=== PATIENT | male | born 1955 | race Two or more races ===

== ENCOUNTER 2022-08-20 12:51 | Outpatient (CLI) | payer OTHER ==
[~2022-08-20 12:51] MED LIST: ASA-EC81 MG PO; COZAAR50 MG PO
== END 2022-08-20 12:55 | disposition home or self-care (01) ==
LOC: NUCLEAR 12:51
PROVIDERS: ATTEND Emergency Medicine
DX: M81.0 Age-related osteoporosis without current pathological fracture (principal); Z13.820 Encounter for screening for osteoporosis

== ENCOUNTER 2023-01-17 12:36 | Outpatient (CLI) | payer OTHER | END 2023-01-17 12:44 | disposition home or self-care (01) | LOC: RAD 12:36 | PROVIDERS: ATTEND Orthopaedic Surgery | DX: M25.552 Pain in left hip (principal) ==

== ENCOUNTER 2023-01-28 08:28 | Outpatient (CLI) | payer OTHER | END 2023-01-28 08:33 | disposition home or self-care (01) | LOC: LAB 08:28 | PROVIDERS: ATTEND Orthopaedic Surgery | DX: D64.89 Other specified anemias (principal); E88.89 Other specified metabolic disorders; D68.8 Other specified coagulation defects; N39.0 Urinary tract infection, site not specified; A49.02 Methicillin resistant Staphylococcus aureus infection, unspecified site; E11.9 Type 2 diabetes mellitus without complications; I49.9 Cardiac arrhythmia, unspecified; I10 Essential (primary) hypertension; Z76.89 Persons encountering health services in other specified circumstances ==

== ENCOUNTER 2023-02-01 10:08 | Outpatient (CLI) | payer OTHER | END 2023-02-01 10:16 | disposition home or self-care (01) | LOC: TOM 10:08 | PROVIDERS: ATTEND Orthopaedic Surgery | DX: M25.551 Pain in right hip (principal); M25.552 Pain in left hip ==

== ENCOUNTER 2023-02-13 10:00 | Inpatient (IN) | payer OTHER ==
[~2023-02-13] VITALS: Ht 170.2 cm; Wt 81.6 kg
[2023-02-19 07:18] LABS: MEAN CELL VOLUME 87.4 fL (80.0-100.00); MEAN CORPUSCULAR HEMOGLOBIN 28.7 pg (27.00-32.0); MEAN CORPUSCULAR HGB CONC 32.9 g/dl (32.0-36.0); PLATELET COUNT 143 K/uL (150-450); RED BLOOD COUNT 3.55 M/uL (4.00-6.00); RED CELL DISTRIBUTION WIDTH 13.4 % (11.5-14.5)
[2023-02-19 07:37] LABS: HEMOGLOBIN 10.2 g/dL (13-16.00)
[2023-02-20 08:05] LABS: HEMATOCRIT 30.2 % (39.0-48.0); HEMOGLOBIN 10.3 g/dL (13-16.00); MEAN CELL VOLUME 86.1 fL (80.0-100.00); MEAN CORPUSCULAR HEMOGLOBIN 29.3 pg (27.00-32.0); PLATELET COUNT 135 K/uL (150-450); RED CELL DISTRIBUTION WIDTH 13.8 % (11.5-14.5)
== END 2023-02-20 17:22 | disposition home or self-care (01) | DRG 470 ==
LOC: SURH 02-18 07:00 → O/R 02-18 07:03 → SURH 02-18 07:03
PROVIDERS: ADMIT Orthopaedic Surgery; ATTEND Orthopaedic Surgery
PROC: 0SRB0JZ Replacement of Left Hip Joint with Synthetic Substitute, Open Approach (ICD-10-PCS; principal; 2023-02-18 07:00)
DX: M16.12 Unilateral primary osteoarthritis, left hip (principal); I10 Essential (primary) hypertension; Z20.822 Contact with and (suspected) exposure to COVID-19